=== PATIENT | male | born 2000 | race Caucasian/White ===

== ENCOUNTER 2022-01-05 15:03 | Outpatient (REF) | payer OTHER, SELFPAY ==
[2022-01-05 15:20] LABS: MANUAL DIFF FLAG NO
[2022-01-05 15:22] LABS: Basophils Percent Auto 0.8 % (0-2); Eosinophils Absolute Auto 0.3 X10*3/uL (0.0-0.4); Eosinophils Percent Auto 7.2 % (0-4); Hematocrit 43.9 % (42.0-52.0); Hemoglobin 15.3 g/dl (14.0-18.0); Imm Gran Abs Auto 0.01 X10*3/uL (0.00-0.03); Imm Gran Pct Auto 0.3 % (0.0-0.4); Lymphocytes Absolute Auto 1.3 X10*3/uL (1.2-4.9); Lymphocytes Percent Auto 33.8 % (20-40); Mean Corpuscular HGB Conc 34.9 g/dl (31.0-36.0); Mean Corpuscular Hemoglobin 31.1 pg (27.0-33.0); Mean Corpuscular Volume 89.2 fL (80.0-98.0); Mean Platelet Volume 10.1 fL (9.4-12.4); Monocytes Absolute Auto 0.2 X10*3/uL (0.1-1.2); Monocytes Percent Auto 5.6 % (2-11); Neutrophils Percent Auto 52.3 % (45-73); Platelet Count 167 X10*3/uL (160-400); Red Blood Count 4.92 X10*6/uL (4.60-5.80); Red Cell Distribution Width 11.9 % (11.0-16.0); White Blood Count 3.7 X10*3/uL (4.8-10.8)
[2022-01-05 15:45] LABS: Anion Gap 10 (12-20); Blood Urea Nitrogen 6 mg/dL (9-16); Calcium 9.5 mg/dL (8.4-10.2); Carbon Dioxide 29 mmol/L (22-29); Chloride 104 mmol/L (96-108); Cholesterol 122 mg/dL; Estimated Glomerular Filt Rate > 60; Glucose Random 96 mg/dL (60-115); Potassium 4.5 mmol/L (3.3-5.1); Sodium 138 mmol/L (135-145)
[2022-01-05 15:48] LABS: Appearance Urine CLEAR; Color Urine YELLOW; Glucose Urine UA NEG (NEG); Leukocyte Esterase Urine NEG (NEG); Nitrite Urine NEG (NEG); PH 8.5 (5.0-8.0); Urine Blood NEG (NEG); Urine Ketones NEG (NEG); Urine Protein NEG (NEG-TRACE)
[2022-01-05 16:39] LABS: Amphetamine Screen Urine Not Detected (Not Detect); Barbiturates, Urine Not Detected (Not Detect); Benzodiazepines Screen Urine Not Detected (Not Detect); Cannabinoid Screen Urine Not Detected (Not Detect); Cocaine Screen Urine Not Detected (Not Detect); Fentanyl, urine Not Detected (Not Detect); Opiate Screen Urine Not Detected (Not Detect); Phencyclidine Screen Urine Not Detected (Not Detect)
[2022-01-06 10:29] LABS: HBS Num1 24.39 mIU/mL (0-7.99); ~Hepatitis B Surface Antibody REACTIVE (Nonreactive)
== END 2022-01-05 15:04 | disposition home or self-care (01) ==
LOC: HO.LAB 15:03
PROVIDERS: PCP Internal Medicine; Visit Provider Internal Medicine
DX: Z00.00 Encounter for general adult medical examination without abnormal findings (principal)
CPT/HCPCS: 80048; 80307; 81003; 82465; 85025; 86706

== ENCOUNTER 2025-04-13 10:21 | Outpatient (AMB) | payer BC, SELFPAY ==
--- NOTE | 2025-04-13 10:19 | MHC.PC.OV ---
Vital Signs 04/13/25 10:22 04/13/25 10:24 Height 5 ft 10 in Weight 144 lb BMI 20.7 BP 110/64 Blood Pressure Location Lt brachial Position Sitting Respiration 17 Pulse 91 Pulse Source Pulse Oximeter Temp 99.1 F Temp Source Temporal Artery Scan Pulse Oximetry (%) 99 Oxygen Delivery Method Room Air Intake Visit Reasons: Annual Japanese Interpreter Required: No Accompanied by: Self / Same As Patient Allergies No Known Allergies Allergy (Verified 04/13/25 10:19) Tobacco use date assessed: 04/13/25 [facility] Social History Patient Tobacco Use Status: Never used Tobacco e-Cigarette/Vaping Use: Never Used Questionnaire PHQ-9 Over the last 2 weeks, how often have you been bothered by any of the following problems? 1. Little interest or pleasure in doing things: not at all 2. Feeling down, depressed, or hopeless: not at all 3. Trouble falling or staying asleep, or sleeping too much: not at all 4. Feeling tired or having little energy: not at all 5. Poor appetite or overeating: not at all 6. Feeling bad about yourself - or that you are a failure or have let yourself or your family down: not at all 7. Trouble concentrating on things, such as reading the newspaper or watching television: not at all 8. Moving or speaking so slowly that other people could have noticed. Or the opposite - being so fidgety or restless that you have been moving around a lot more than usual: not at all 9. Thoughts that you would be better off or of hurting yourself in some way: not at all Total score: 0 Source: Developed by Drs. Jeff Young, Kathleen Rizzo, Keith Ziegler and colleagues, with an educational tash from [employer]. Thrive Questionnaire Date Thrive assessed: 04/13/25 I am a: Patient What is your living situation today?: I have a steady place to live Within the past 12 months, did the food you bought not last and you didn't have the money to get more?: Never true Within the past 12 months, did you worry whether your food would run out before you got money to buy more?: Never true Do you have trouble paying for medicines?: No Do you have trouble getting transportation to medical appointments?: No Do you have trouble paying your heating and electricity bill?: No Do you have trouble taking care of your child, family member or friend?: No Do you have trouble with day-to-day activities such as bathing, preparing meals, shopping, managing finances, etc.?: No Are you currently unemployed and looking for a job?: No Are you interested in more education?: No THRIVE Score: 0 AUDIT C Alcohol Use Questionnaire (AUDIT-C) 1. How often do you have a drink containing alcohol?: Never Total Score: 0 CONNIE-7 AMB Questionnaire CONNIE-7 Date CONNIE - 7 assessed: 04/13/25 Feeling nervous, anxious, or on edge: 0 = Not at all Not being able to stop or control worryin = Not at all Worrying too much about different things: 0 = Not at all Trouble relaxin = Not at all Being so restless that it is hard to sit still: 0 = Not at all Becoming easily annoyed or irritable: 0 = Not at all Feeling afraid as if something awful might happen: 0 = Not at all Total CONNIE-7 score (0-4 normal; 5-9 mild; 10-14 moderate; 15-21 severe): 0 Source: Developed by Drs. Jeff Young, Kathleen Rizzo, Keith Ziegler and colleagues, with an educational tash from [employer]. Physical exam (Primary Care) Vital Signs: Last Vital Signs Temp 99.1 F 04/13/25 10:24 Pulse 91 04/13/25 10:24 Resp 17 04/13/25 10:24 BP 110/64 04/13/25 10:24 Pulse Ox 99 04/13/25 10:24 Oxygen Delivery Method Room Air 04/13/25 10:24 BMI result Body Mass Index 20.7 Tobacco/Smoking Status: Tobacco use Status Tobacco use date assessed 04/13/25 04/13/25 10:25 Patient Tobacco Use Status Never used Tobacco 04/13/25 10:25 e-Cigarette/Vaping Use Never Used 04/13/25 10:25 PHQ-9: PHQ-9 Score PHQ-9: Total score 0 04/13/25 10:52 Thrive Assessment: Date of Thrive Assessment Date Thrive assessed 04/13/25 04/13/25 10:52 Coding Level of Care Code New Pt Prev Care 18-39yr([id number] Diagnoses Annual physical exam Z00.00 Assessment & Plan Assessment & Plan (1) Annual physical exam: Code(s): Z00.00 - Encounter for general adult medical examination without abnormal findings Plan: History of Present Illness - The patient is a 25-year-old male presenting for a physical examination with concerns about back pain. - Back pain: The patient reports experiencing back pain, which he attributes to frequently bending and lifting heavy boxes at work. - Urinary hesitancy: The patient describes difficulty initiating urination, particularly after defecation, requiring effort to void small amounts of urine. - Cataract: The patient has a cataract in his left eye but compensates with his right eye, and he is under the care of an dental resident. - Social history: The patient lives with his father, does not smoke, and engages in walking as his primary form of exercise. Social History - The patient lives with his father and does not smoke. - He engages in walking as his primary form of exercise, both at work and with his father in their neighborhood. Review of Systems - Musculoskeletal: Reports back pain associated with lifting heavy boxes. - Genitourinary: Reports urinary hesitancy and difficulty initiating urination. - Ophthalmologic: Reports cataract in the left eye, compensating with the right eye. - Respiratory: Denies smoking but is exposed to secondhand smoke at work. Physical Exam General: Cooperative and healthy appearing Nutritional Appearance: Well nourished Orientation/consciousness: Patient oriented x3 Limitations: No limitations Head: Normal to inspection General: Appearance normal, both eyes and all related structures Neck: Normal visual inspection Chest: Normal palpation of entire chest wall Respiratory: Normal respiratory effort Neurology: Patient oriented x3 Results Plan 1. Back Pain - Plan to evaluate ergonomic factors at work and consider physical therapy if symptoms persist. 2. Urinary Hesitancy - Plan to conduct urinalysis and consider referral to urology if symptoms persist. 3. Cataract In Left Eye - Continue follow-up with ophthalmology for monitoring and management. Discussion Notes During the visit, we discussed the patient's back pain and its possible relation to his work activities. I advised him to consider ergonomic adjustments and physical therapy if the pain persists. We also addressed his urinary hesitancy, and I recommended a urinalysis with a potential referral to urology if needed. For his cataract, I emphasized the importance of continued follow-up with his dental resident. We agreed on obtaining blood work to further assess his health status. Patient Instructions - Follow ergonomic practices at work to reduce back strain. - Schedule a urinalysis and follow up with results. - Continue regular visits with your dental resident for cataract management. - Complete the recommended blood work. Orders: Orders Basic Metabolic Panel Today E78.5 - Hyperlipidemia, unspecified, Z00.00 - Encounter for general adult medical examination without abnormal findings Complete Blood Count no Diff Today E78.5 - Hyperlipidemia, unspecified, Z00.00 - Encounter for general adult medical examination without abnormal findings Thyroid Stimulating Hormone Today E78.5 - Hyperlipidemia, unspecified, Z00.00 - Encounter for general adult medical examination without abnormal findings UA and rflx microscopic Today E78.5 - Hyperlipidemia, unspecified, Z00.00 - Encounter for general adult medical examination without abnormal findings Lipid Panel Today E78.5 - Hyperlipidemia, unspecified, Z00.00 - Encounter for general adult medical examination without abnormal findings Liver Panel Today E78.5 - Hyperlipidemia, unspecified, Z00.00 - Encounter for general adult medical examination without abnormal findings
[2025-04-13 10:22] VITALS: BMI 20.7
[2025-04-13 10:24] VITALS: BP 110/64; PULSE 91; RESP 17; TEMP 37.3; O2SAT 99
--- OUTSIDE RECORDS SUMMARY | 2025-04-13 11:26 | XMS_ITS | Clinical Summary ---
Author Organization [facility] Address [address] [place] [id number] Phone Care Team Providers Care Floor Coverings Salesperson Name Role Phone Navjot De La Cruz MD Primary Care Provider [phone] Allergies No known active allergies Medications No known medications Immunizations Immunization Administration Dates Next Due DTaP 5 02/24/2003, 9,1998,06/30,1998 H1N1 Inj Preservative Free 10/01/2009 HPV, Quadrivalent 11/27/2012,07/30/2012,05/30/20 12 Hep A, ped/adol 08/27/2014,07/17/2013 Hep B, ped/adol 1998,1998,1998 Hib (PRP-T) 05/30/1999, 8,1998,05/03 IPV 02/24/2003, 9,1998,05/03 Influenza, injectable, quadr ivalent, preservative free 06/22/2018,06/26/2015,08/27/2014 Influenza, injectable, trivalent 012,05/16/2011,06/18/2010,07/02,10/05/2008,08/14/2007 Influenza, injectable, triva lent, preservative free 07/17/2013 MMR 02/24/2003,02/25/1999 Meningococcal Conj (Menactra) MCV4P 08/27/2014,0 04/07/2009 Tdap 04/14/2019,04/07/2009 Varicella 04/07/2009,02/25/1999 Family History Medical History Relation Name Comments Heart disease (Premature) Father No Known Problems Mother Relation Name Status Comments Father Mother Social History Tobacco Use Types Packs/Day Years Used Date Smoking Tobacco: Never Smokeless Tobacco: Never Comments:Never Smoker Alcohol Use Standard Drinks/Week Comments Never 0 (1 standard drink = 0.6 oz pur e alcohol) Hunger/Food Answer Date Recorded In the last 12 months, did y ou or your family ever eat less than you felt you should because there wasn't enough money for food? No 04/23/2020 Stable Housing Answer Date Recorded Are you worried that in the next 2 months you may not have stable housing? No 04/23/2020 Transportation Concerns Answer Date Rec orded In the last 12 months, have you or your family ever had to go without healthcare because you didn't have a way to get there? No 04/23/2020 Hazards in Home Answer Date Recorded Think about the place you li ve. Do you have problems with any of the following? Pests (mice or roaches), mold, no/not working smoke detectors, water leaks, no window guards. No 2019 Financing Utilities Answer Date Recorde d In the last 12 months, has t he electric, gas, oil, or water company threatened to shut off your services in your home? No 04/23/2020 Safety at Home Answer Date Recorded Are you or your family worried about feeling saf e in your home? No 04/23/2020 Outside Support Answer Date Recorded Do you feel that you need mo re support from other people or programs to help you care for yourself or your family? No 04/23/2020 Understanding Health Concerns Answer Da te Recorded Do you need help understandi ng your or your child's healthcare needs (diagnosis, medications, plan, etc.)? No 04/23/2020 Financing Health Concerns Answer Date R ecorded In the last 12 months, was t here a time when your child needed to see a doctor or get medications or supplies but could not because of cost? No 04/23/2020 Missing School or Work Answer Date Aime rded Did you or your child miss s chool or work because of a health problem that could have been avoided? No 04/23/2020 Sex and Gender Information Value Date Recorded Sex Assigned at Not on file Legal Sex Male 6:35 PM EDT Gender Identity Not on file Sexual Orientation Not on file Last Filed Vital Signs Vital Sign Reading Time Taken Comments Blood Pressure 98/60 04/23/2020 12:16 PM EDT Pulse 75 04/23/2020 12:16 PM EDT Temperature 36.4 C (97.6 F) 04/23/2020 12:16 PM EDT Respiratory Rate - - Oxygen Saturation - - Inhaled Oxygen Concentration - - Weight 62.4 kg (137 lb 9.6 oz) 04/23/2020 12:16 PM EDT Height 179.1 cm (5' 10.5 ) 04/23/2020 12:16 PM E DT Body Mass Index 19.46 04/23/2020 12:16 PM EDT Plan of Treatment Health Maintenance Due Date Last Done Comments COVID-19 Vaccine ( season) 2024 08/06/2021, 02/02/2021, 01/05/2021 Influenza Vaccines (#1) 2025 06/26/20, 07/05/2020, 07/06/2019, Additional history exists DTaP,Tdap,and Td Vaccines (8 - Td or Tdap) 04/14/2029 04/14/2019, 04/07/2009, 02/24/2003, Additional history exists Hepatitis B Vaccines Completed 1998, 1998, 1998 HIB Vaccines Completed 05/30/1999, 08/17, 1998, Additional history exists IPV Vaccines Completed 02/24/2003, 08/17, 1998, Additional history exists MMR Vaccines Completed 02/24/2003, 02/25/1999 Varicella Vaccines Completed 04/07/2009, 02/25/1999 HPV Vaccines Completed 11/27/2012, 07/18, 05/30/2012 Hepatitis A Vaccines Completed 08/27/2014, 07/17/20 13 Meningococcal Vaccine Completed 08/27/2014, 009 Men B Vaccine Aged Out No longer elig ible based on patient's age to complete this topic Pneumococcal Vaccine Aged Out No long er eligible based on patient's age to complete [place] [id number] [facility] [employer] [id number] Care Teams Floor Coverings Salesperson Relationship Specialty Start Date End Date Navjot De La Cruz MD [facility] [facility] [address] PCP - General 01/23/18
== END 2025-04-13 10:49 | disposition home or self-care (01) ==
LOC: HO.HMCHD 10:21
PROVIDERS: PCP Internal Medicine; Visit Provider Internal Medicine
DX: Z00.00 Encounter for general adult medical examination without abnormal findings (principal)

== ENCOUNTER 2025-04-18 08:03 | Outpatient (REF) | payer BC, SELFPAY ==
[2025-04-18 09:25] LABS: Hematocrit 43.3 % (42.0-52.0); Hemoglobin 15.1 g/dl (14.0-18.0); Mean Corpuscular HGB Conc 34.9 g/dl (31.0-36.0); Mean Corpuscular Hemoglobin 32.0 pg (27.0-33.0); Mean Corpuscular Volume 91.7 fL (80.0-98.0); NRBC Abs Auto 0.000 X10*3/uL (0.0-0.012); NRBC Pct Auto 0.0 /100WBC (0.0-0.2); Platelet Count 186 X10*3/uL (160-400); Red Blood Count 4.72 X10*6/uL (4.60-5.80); White Blood Count 3.9 X10*3/uL (4.8-10.8)
[2025-04-18 10:02] LABS: Appearance Urine Cloudy; Glucose Urine UA Negative (Negative); PH 6.0 (5.0-9.0); Specific Gravity - Urine 1.020 (1.005-1.025); UMIC TRIGGER UA YES
[2025-04-18 10:24] LABS: Alanine Aminotransferase 18 U/L (0-40); Albumin Level 4.9 g/dL (3.5-5.0); Alkaline Phosphatase 67 U/L (39-117); Anion Gap 12 (12-20); Aspartate Amino Transferase 28 U/L (5-37); Blood Urea Nitrogen 6 mg/dL (9-16); Calcium 9.7 mg/dL (8.4-10.2); Carbon Dioxide 28 mmol/L (22-29); Chloride 106 mmol/L (96-108); Cholesterol 121 mg/dL (<200); Estimated Glomerular Filt Rate > 60; HDL Cholesterol 47 mg/dL (>40); Potassium 4.4 mmol/L (3.3-5.1); Sodium 142 mmol/L (135-145); Total Protein 7.5 g/dL (6.5-8.0); Triglycerides 42 mg/dL (<150)
[2025-04-18 10:27] LABS: Thyroid Stimulating Hormone 1.04 uIU/mL (0.32-4.0)
== END 2025-04-18 08:04 | disposition home or self-care (01) ==
LOC: HO.LAB 08:03
PROVIDERS: PCP Internal Medicine; Visit Provider Internal Medicine
DX: Z00.00 Encounter for general adult medical examination without abnormal findings (principal); E78.5 Hyperlipidemia, unspecified
CPT/HCPCS: 36415; 80048; 80061; 80076; 81001; 81003; 84443; 85027

== ENCOUNTER 2025-08-04 20:54 | Emergency (ER) | payer BC, SELFPAY ==
--- NOTE | ~2025-08-04 | XR_ITS ---
CLINICAL HISTORY: pain swelling post fall 3 view right ankle Comparison: None provided Findings: Mildly displaced fracture of the distal fibular tip. Moderate lateral malleolus soft tissue swelling. IMPRESSION: 1. Acute fracture of the distal fibular tip. This document has been electronically signed by: Hodan Burleson MD on 08/04/2025 21:29:18
--- NOTE | ~2025-08-04 | XR_ITS ---
CLINICAL HISTORY: pain post fall 3 view right foot Comparison: None provided Findings: No fractures or dislocations. No significant arthritic change or erosions. No ankle effusion. No radiopaque foreign body. IMPRESSION: 1. No acute findings. See separate ankle radiograph. This document has been electronically signed by: Hodan Burleson MD on 08/04/2025 21:32:29
[2025-08-04 20:57] VITALS: BP 129/67; PULSE 92; RESP 16; TEMP 37.2; O2SAT 100; BMI 21.5
[2025-08-05 00:22] VITALS: BP 113/75; PULSE 70; RESP 20; TEMP 36.6; O2SAT 96
--- NOTE | 2025-08-05 01:07 | ED.LOWEXIN ---
HPI - Extremity Injury (Lower) General Chief Complaint: Extremity Injury, Lower Stated Complaint: Swelling Of Limb/rt ankle Source: patient Mode of arrival: ambulatory Limitations: no limitations History of Present Illness ED Provider: Dr. Mini Esquivel HPI Narrative: Patient comes to the emergency room complaining of right ankle pain. Patient states that he was at work and tripped over a box. Patient denies hitting his head or losing consciousness. Patient denies being on blood thinners. Related Data Home Medications ?Medication ?Instructions ?Recorded ?Confirmed multivitamin 1 tab PO DAILY 04/13/25 Allergies Allergy/AdvReac Type Severity Reaction Status Date / Time No Known Allergies Allergy Verified 08/04/25 20:59 Review of Systems Review of Systems: Constitutional : No Weight loss, No Fever, No Chills, No Night Sweats, No Fatigue, No Malaise ENT/Mouth : No Hearing loss, No Ear Pain, No Nasal Congestion, No Sinus Pain, No Hoarseness, No sore throat, No Rhinorrhea, No Swallowing Difficulty Eyes: No Eye Pain, No Swelling, No Redness, No Foreign Body, No Discharge, No Vision Changes Cardiovascular : No Chest Pain, No SOB, No Dyspnea on Exertion, No Orthopnea, No Edema, No Palpitations Respiratory : No Cough, No Sputum, No Wheezing, No Smoke Exposure, No Dyspnea Gastrointestinal : No Nausea, No Vomiting, No Diarrhea, No Constipation, No abdominal Pain, No Hematochezia, No Melena Genitourinary : no irregular bleeding, No Dysuria, No Urinary Frequency, No Hematuria, No Urinary Incontinence, No Urgency, No Flank Pain, No Urinary Flow Changes, No Hesitancy Musculoskeletal : Complaining of right ankle pain No Myalgias, No Joint Swelling Skin : No Skin Lesions, No rash Neuro : No Weakness, No Numbness, No Paresthesias, No Loss of Consciousness, No Dizziness, No Headache Psych : No Anxiety/Panic, No Depression, No SI/HI/AH/VH, No Social Issues, Heme/Lymph: No Bruising, No Bleeding,No Lymphadenopathy Endocrine : No Polyuria, No Polydipsia, No Temperature Intolerance [facility] Social History Social History Patient Tobacco Use Status: Never used Tobacco e-Cigarette/Vaping Use: Never Used Physical Exam Exam: Exam: Appearance: Alert. Oriented X3. No acute distress. Eyes: Pupils equal, round and reactive to light. ENT: Pharynx normal. Neck: Normal inspection. Neck supple. No lymph nodes noted. No crepitus CVS: Normal heart rate and rhythm. Pulses normal. Normal S1 and S2 Respiratory: No respiratory distress. Breath sounds normal. No Wheezing. No rales Abdomen: Soft and nontender. No rigidity. No distention. Skin: Skin warm and dry. Normal skin color. Normal skin turgor. Extremities: Patient's right ankle there is swelling over the lateral malleolus, pain to palpation over than malleolus. No pain to palpation in the foot. No pain to palpation over the medial malleolus Neuro: Oriented X 3. No motor deficit. No sensory deficit. Moving all extremities. No slurred speech. CN 2 through 12 grossly intact Psych: calm, cooperative, normal affect Vital Signs: Vital Signs: Last Vital Signs Temp 97.9 F 08/05/25 00:22 Pulse 70 08/05/25 00:22 Resp 20 08/05/25 00:22 BP 113/75 08/05/25 00:22 Pulse Ox 96 08/05/25 00:22 O2 Del Method Room Air 08/05/25 00:22 BMI result Body Mass Index 21.5 Medical Decision Making Medical Decision Making MDM Narrative: Patient declined pain medication. X-ray of the ankle shows an acute fracture of the distal fibular tip Patient's foot was put in a splint, given crutches. Patient instructed to follow-up with work connections and Orthopedics. Differential Diagnosis Differential Diagnoses: The differential diagnosis associated with the presentation includes (Ankle fracture, sprain, dislocation, contusion) Independent Interpretation I performed an independent interpretation of an: Plain X-Ray Radiology Impression Discussion of test interpretation with radiology: I have reviewed the radiologist's reading. Radiologist Impression: Mildly displaced fracture of the distal fibular tip. Moderate lateral malleolus soft tissue swelling. IMPRESSION: 1. Acute fracture of the distal fibular tip. Discharge Plan Discharge Clinical Impression: Fracture of lateral malleolus Patient Disposition: Home, Self-Care Instructions: Crutch Instructions (ED), Ankle Fracture (ED) Additional Instructions: Please follow-up with your primary care physician tomorrow. If you have any worsening or new symptoms, please return to the emergency room or call 911 Prescriptions: No Action multivitamin Tablet 1 tab PO DAILY Referrals: Mimi Rivera PA-C [Physician Social Services Manager, Orthopedics] Jhon Segundo MD [Physician, Occupational Medicine] Stand Alone Forms: Work/School Release Print Language: Portuguese
[2025-08-05 01:30] VITALS: BP 113/75; PULSE 70; RESP 20; TEMP 36.6; O2SAT 96
--- OUTSIDE RECORDS SUMMARY | 2025-08-05 14:31 | XMS_ITS | Clinical Summary ---
Author Organization [facility] Address [address] [place] [phone] Phone Care Team Providers Care Trolley Worker Name Role Phone Navjot De La Cruz MD Primary Care Provider [phone] Allergies No known active allergies Medications No [...] Health Maintenance Due Date Last Done Comments Influenza Vaccines (#1) 2025 06/26/20, 07/05/2020, 07/06/2019, Additional history exists COVID-19 Vaccine ( season) 2025 08/06/2021, 02/02/2021, 01/05/2021 DTaP,Tdap,and Td Vaccines (8 - Td or [...] complete [place] [id number] [facility] [employer] [id number] Care Teams Trolley Worker Relationship Specialty Start Date End Date Navjot De La Cruz MD [facility] [facility] [place] [address] PCP - General 01/23/18
--- OUTSIDE RECORDS SUMMARY | 2025-08-05 14:32 | XMS_ITS | Encounter Summary ---
Author Organization [facility] Address [address] [place] [phone] Phone Care Team Providers Care University Administrator Name Role Phone Navjot De La Cruz MD Primary Care Provider [phone] Encounter Details Date Type Department Care Team (Late st Contact Info) Description 05/16/2011 Conversion Encounter [facility] [address] [place] [address] [place] [phone] Social History Tobacco Use Types Packs/Day Years Used Date Smoking Tobacco: Never Assessed Sex and Gender Information Value Date Recorded Sex Assigned at Not on file Legal Sex Male 6:35 PM EDT Gender Identity Not on file Sexual Orientation Not on file documented as of this encounter Plan of Treatment Not on file documented as of this encounter Visit Diagnoses Not on filedocumented in this encounter Care Teams University Administrator Relationship Specialty Start Date End Date Navjot De La Cruz MD [address] [place] [address] [place] [id number] PCP - General 01/23/18 documented as of this encounter
== END 2025-08-05 01:30 | disposition home or self-care (01) ==
PROVIDERS: Emergency Provider Emergency Medicine
DX: S82.61XA Displaced fracture of lateral malleolus of right fibula, initial encounter for closed fracture (principal); W18.09XA Striking against other object with subsequent fall, initial encounter; Y93.01 Activity, walking, marching and hiking; Y92.9 Unspecified place or not applicable; Y99.0 Civilian activity done for income or pay; M25.571 Pain in right ankle and joints of right foot; R60.0 Localized edema
CPT/HCPCS: 73610; 73630; 99283

== ENCOUNTER → 2025-08-04 21:05 | Outpatient (BNV) | payer OTHER, SELFPAY | PROVIDERS: Visit Provider Student in an Organized Health Care Education/Training Program | DX: S82.831A Other fracture of upper and lower end of right fibula, initial encounter for closed fracture (principal); M79.671 Pain in right foot; Z04.3 Encounter for examination and observation following other accident | CPT/HCPCS: 73610; 73630 ==

== ENCOUNTER 2025-08-06 11:17 | Outpatient (AMB) | payer BC, SELFPAY ==
[2025-08-06 11:45] VITALS: BMI 21.5
--- NOTE | 2025-08-06 11:45 | A.OFFVIS_ITS ---
Vital Signs 08/06/25 11:45 Height 5 ft 10 in Weight 150 lb BMI 21.5 Intake Visit Reasons: Avulsion fracture of right ankle Intake Note: Milton is a 25 year old male who presents today as a new patient for an evaluation of his avulsion fracture of his right ankle. Patient reports fracture occurred after falling at work and then he was [place] [facility] [facility] [place] where a splint was applied and he was provided with crutches. Patient reports he is still experiencing slice pain with movement Allergies No Known Allergies Allergy (Verified 08/06/25 13:01) HPI Comments Details: The patient is a 25-year-old male with a past medical history as seen below presenting with a right ankle injury. Patient states he experienced pain and swelling to the right ankle when he stepped down awkwardly and tripped on a pothole, resulting in a fall that led to the current symptoms. Initially, the patient did not notice the severity of the swelling due to wearing shoes and socks, but upon returning home, observed significant swelling and bruising. The patient reports that the swelling has decreased somewhat since the initial injury, and the bruising is beginning to resolve. Pain is primarily located at the back of the ankle, with minimal pain on the medial and lateral aspects of the ankle. The patient denies any numbness or tingling to the right lower extremity. Patient was seen in the emergency room in which x-rays were performed and he was placed in a posterior splint. He denies any other pedal concerns. Patient was accompanied by his father. [facility] Medical History (Updated 08/09/25 @ 16:00 by Andra Clemens DPM) Right ankle pain Right ankle sprain Right ankle injury Avulsion fracture of lateral malleolus of right fibula Social History Patient Tobacco Use Status: Never used Tobacco e-Cigarette/Vaping Use: Never Used Review of Systems Const Details: - Musculoskeletal: Reports right ankle pain following an injury. - Neurological: Denies numbness or tingling. All systems reviewed & are unremarkable except as noted in HPI and below Physical Exam Vital Signs: BMI result Body Mass Index 21.5 Extrem Other: Right lower extremity focused physical exam: Derm: No open lesions abrasions or wounds noted. Resolving minimal ecchymosis noted. No hyperkeratotic areas or macerated areas noted. No clinical signs of infection noted. Vascular: DP/PT pulses palpable. Capillary refill time less than 3 seconds. Temperature gradient warm to warm. Pedal hair present. Mild nonpitting edema noted. Neuro: Protective Sensation is grossly intact. MSK: Pain on palpation to the ankle along the medial aspect, lateral aspect and posterior aspect. Range of motion of the ankle decreased due to guarding from plain. Range of motion of the forefoot within normal limits. Pain on palpation to the lateral ankle ligaments. No crepitus or fluctuance noted. MMT 4/5. Antalgic gait noted, patient is nonweightbearing to the right lower extremity with the use of crutches. Office Procedures AMB Podiatry Dressing Details of Procedure: Applied a posterior splint to the right lower extremity. 21875 - Short leg splint Procedure code (CPT) selection complete Results Reviewed Results Reviewed: Ordered right ankle x-rays three-view weight-bearing to be performed prior to next visit. Podiatry read of right ankle x-ray (08/04/2025): Avulsion fracture noted to the distal tip of the fibula. No other fractures or dislocations noted. Joint spacing within normal limits. Soft tissue swelling noted. Right ankle x-ray (08/04/2025): Findings: Mildly displaced fracture of the distal fibular tip. Moderate lateral malleolus soft tissue swelling. IMPRESSION: 1. Acute fracture of the distal fibular tip. Podiatry read of right foot x-ray (08/04/2025): Joint space narrowing noted to IPJs 1-5. Os peroneum noted. No acute fractures or dislocations noted. Right foot x-ray (08/04/2025): Findings: No fractures or dislocations. No significant arthritic change or erosions. No ankle effusion. No radiopaque foreign body. IMPRESSION: 1. No acute findings. See separate ankle radiograph. Assessment & Plan Assessment & Plan (1) Avulsion fracture of lateral malleolus of right fibula: Code(s): S82.61XA - Displaced fracture of lateral malleolus of right fibula, initial encounter for closed fracture Category: Medical Qualifiers: Encounter type: initial encounter Fracture type: closed Qualified Code(s): S82.61XA - Displaced fracture of lateral malleolus of right fibula, initial encounter for closed fracture (2) Right ankle sprain: Code(s): S93.401A - Sprain of unspecified ligament of right ankle, initial encounter Category: Medical Qualifiers: Encounter type: initial encounter Involved ligament of ankle: unspecified ligament Qualified Code(s): S93.401A - Sprain of unspecified ligament of right ankle, initial encounter (3) Right ankle injury: Code(s): S99.911A - Unspecified injury of right ankle, initial encounter Category: Medical Qualifiers: Encounter type: initial encounter Qualified Code(s): S99.911A - Unspecified injury of right ankle, initial encounter (4) Right ankle pain: Code(s): M25.571 - Pain in right ankle and joints of right foot Category: Medical Qualifiers: Chronicity: acute Qualified Code(s): M25.571 - Pain in right ankle and joints of right foot Plan Patient was informed and verbally consented to the use of an ambient scribe for clinic note documentation during this visit. I discussed with the patient and his father that the x-rays revealed an avulsion fracture distal tip of the fibula which is a favorable type of fracture for conservative treatment. I explained the importance of non-weightbearing status and the use of a posterior splint to aid in healing. We talked about the potential need for physical therapy. We discussed need for surgical inte rvention if conservative treatment fails. I advised the patient to return in two weeks for a follow-up and repeat x-rays to monitor the healing process. - Ordered right ankle x-rays to be performed prior to next visit. - Applied a posterior splint to the right lower extremity. - Patient is to be nonweightbearing to the right lower extremity with the use of an assistive device. - Patient is to keep the posterior splint clean dry and intact. - Continue rice protocol. - Patient may take ibuprofen or Tylenol PRN for pain. RTC in 2 weeks. Orders: Orders AMB Podiatry Dressing 08/06/25 M25.571 - Pain in right ankle and joints of right foot, S82.61XA - Displaced fracture of lateral malleolus of right fibula, initial encounter for closed fracture, S93.401A - Sprain of unspecified ligament of right ankle, initial encounter, S99.911A - Unspecified injury of right ankle, initial encounter XR ankle RT min 3V 08/06/25 M25.571 - Pain in right ankle and joints of right foot, S82.61XA - Displaced fracture of lateral malleolus of right fibula, initial encounter for closed fracture, S93.401A - Sprain of unspecified ligament of right ankle, initial encounter, S99.911A - Unspecified injury of right ankle, initial encounter Coding Level of Care Code New Pt Level 4 (77267) Diagnoses Closed avulsion fracture of lateral malleolus of right fibula, initial encounter S82.61XA Encounter type: initial encounter Fracture type: closed Sprain of right ankle, unspecified ligament, initial encounter S93.401A Encounter type: initial encounter Involved ligament of ankle: unspecified ligament Injury of right ankle, initial encounter S99.911A Encounter type: initial encounter Acute right ankle pain M25.571 Chronicity: acute CPT Codes Podiatry Dressing - CPT: 19519 - Short leg splint ([id number]) Time Spent (min) 50
--- OUTSIDE RECORDS SUMMARY | 2025-08-06 17:31 | XMS_ITS | Encounter Summary ---
Author Organization [facility] Address [address] [place] [address] Phone Care Team Providers Care Environmental Studies Professor Name Role Phone Navjot De La Cruz MD Primary Care Provider [phone] Encounter Details Date Type Department Care Team (Late st Contact Info) Description 05/16/2011 Conversion Encounter [facility] [address] [place] [address] [place] [address] Social History Tobacco Use Types Packs/Day Years [...] on filedocumented in this encounter Care Teams Environmental Studies Professor Relationship Specialty Start Date End Date Navjot De La Cruz MD [address] [place] [address] [place] [address] PCP - General 01/23/18 documented as of this encounter
--- OUTSIDE RECORDS SUMMARY | 2025-08-06 17:31 | XMS_ITS | Clinical Summary ---
Author Organization [facility] Address [address] [place] [address] Phone Care Team Providers Care Jewelry Designer Name Role Phone Navjot De La Cruz MD Primary Care Provider Allergies No known active allergies Medications No [...] complete [place] [id number] [facility] [employer] [place] [id number] Care Teams Jewelry Designer Relationship Specialty Start Date End Date Navjot De La Cruz MD [facility] [place] [address] PCP - General 01/23/18
== END 2025-08-06 12:06 | disposition home or self-care (01) ==
LOC: HO.HPODS 11:18
PROVIDERS: Visit Provider Student in an Organized Health Care Education/Training Program
DX: S82.61XA Displaced fracture of lateral malleolus of right fibula, initial encounter for closed fracture (principal); S93.401A Sprain of unspecified ligament of right ankle, initial encounter; S99.911A Unspecified injury of right ankle, initial encounter; M25.571 Pain in right ankle and joints of right foot
CPT/HCPCS: 29515; 99204

== ENCOUNTER → 2025-08-06 11:17 | Outpatient (BNVA) | payer BC, SELFPAY | PROVIDERS: Visit Provider Student in an Organized Health Care Education/Training Program | DX: S82.61XA Displaced fracture of lateral malleolus of right fibula, initial encounter for closed fracture (principal); S93.401A Sprain of unspecified ligament of right ankle, initial encounter; W01.0XXA Fall on same level from slipping, tripping and stumbling without subsequent striking against object, initial encounter; Y92.9 Unspecified place or not applicable; Y99.0 Civilian activity done for income or pay | CPT/HCPCS: 29515 ==

== ENCOUNTER 2025-08-15 09:26 | Outpatient (REF) | payer BC, SELFPAY ==
--- NOTE | ~2025-08-15 | XR_ITS ---
EXAMINATION: XR ANKLE, RIGHT CLINICAL INFORMATION: S82.61XA - Displaced fracture of lateral malleolus of right fibula, init... COMPARISON: X-ray 08/04/2025 TECHNIQUE: AP, lateral, and mortise views of the right ankle. FINDINGS: Stable positioning/alignment of the mildly displaced fracture of the distal fibula . Decreased conspicuity of the fracture plane. No new fractures seen. Slight asymmetric ankle mortise, probably positioning/technique. Lateral ankle soft tissue swelling. XR/XR ankle RT min 3V IMPRESSION: Healing changes in the distal fibular tip fracture. Electronically signed by: Omi Gordon MD 08/17/2025 07:47 AM EST
--- OUTSIDE RECORDS SUMMARY | 2025-08-15 09:29 | XMS_ITS | Encounter Summary ---
Author Organization [facility] Address [address] [place] [address] Phone Care Team Providers Care Cofounder Name Role Phone Navjot De La Cruz MD Primary Care Provider [phone] Encounter Details Date Type Department Care Team (Late st Contact Info) Description 05/16/2011 Conversion Encounter [facility] [address] [place] [address] [place] [address] Social History Tobacco Use Types Packs/Day Years [...] on filedocumented in this encounter Care Teams Cofounder Relationship Specialty Start Date End Date Navjot De La Cruz MD [address] [place] [address] [place] [address] PCP - General 01/23/18 documented as of this encounter
--- OUTSIDE RECORDS SUMMARY | 2025-08-15 09:29 | XMS_ITS | Clinical Summary ---
Author Organization [facility] Address [address] [place] [address] Phone Care Team Providers Care Mail Carrier And Clerk Name Role Phone Navjot De La Cruz MD Primary Care Provider [phone] Allergies No known active allergies Medications No [...] complete [place] [id number] [facility] COMM[employer]CIAL [place] [id number] Care Teams Mail Carrier And Clerk Relationship Specialty Start Date End Date aNvjot De La Cruz MD [facility] [place] [address] PCP - General 01/23/18
== END 2025-08-15 09:27 | disposition home or self-care (01) ==
LOC: HO.XRAY 09:26
PROVIDERS: Visit Provider Student in an Organized Health Care Education/Training Program
DX: S82.61XA Displaced fracture of lateral malleolus of right fibula, initial encounter for closed fracture (principal)
CPT/HCPCS: 73610

== ENCOUNTER → 2025-08-15 09:34 | Outpatient (BNV) | payer BC, SELFPAY | PROVIDERS: Visit Provider Radiology Diagnostic Ultrasound | DX: S82.61XD Displaced fracture of lateral malleolus of right fibula, subsequent encounter for closed fracture with routine healing (principal) | CPT/HCPCS: 73610 ==

== ENCOUNTER 2025-08-20 09:26 | Outpatient (AMB) | payer BC, SELFPAY ==
[2025-08-20 09:52] VITALS: BMI 21.5
--- NOTE | 2025-08-20 09:52 | MHC.OFFVIS ---
Vital Signs 08/20/25 09:52 Height 5 ft 10 in Weight 150 lb BMI 21.5 Intake Visit Reasons: f/u xrays; right ankle avulsion fx Intake Note: Milton is a 25 year old male who presents today for a follow up on his right ankle avulsion fracture. At his last visit a posterior splint splint to the right lower extremity was applied and X rays were orders. He was advised to continue following the RICE protocol, take ibuprofen or Tylenol prn for pain, and to be nonweightbearing to the right lower extremity with the use of an assistive device. Patient reports everything is going well and he currently is not experiencing any pain at this time. Allergies No Known Allergies Allergy (Verified 08/20/25 09:53) HPI Comments Details: The patient is a 25 year old male presenting for a follow-up visit for a right ankle avulsion fracture. He reports the ankle has been feeling better since his last visit. He has been NWB to the E and the posterior splint was seen clean, dry, and intact. Patient denies any pain and states he has not needed to take any pain medication. Patient was accompanied by his father. [facility] Medical History (Updated 08/09/25 @ 16:00 by Andra Clemens DPM) Right ankle pain Right ankle sprain Right ankle injury Avulsion fracture of lateral malleolus of right fibula Social History Patient Tobacco Use Status: Never used Tobacco e-Cigarette/Vaping Use: Never Used Review of Systems Const Details: - Musculoskeletal: Reports improvement of right ankle symptoms. All systems reviewed & are unremarkable except as noted in HPI and below Physical Exam Vital Signs: BMI result Body Mass Index 21.5 Extrem Other: Right lower extremity focused physical exam: Derm: No open lesions abrasions or wounds noted. No ecchymosis noted. No hyperkeratotic areas or macerated areas noted. No clinical signs of infection noted. Vascular: DP/PT pulses palpable. Capillary refill time less than 3 seconds. Temperature gradient warm to warm. Pedal hair present. Mild nonpitting edema noted. Neuro: Protective Sensation is grossly intact. MSK: Mild Pain on palpation to the ankle along the medial aspect, lateral aspect and posterior aspect. Range of motion of the ankle increased from last visit. Range of motion of the forefoot within normal limits. Mild Pain on palpation to the lateral ankle ligaments. No crepitus or fluctuance noted. MMT 4/5. Antalgic gait noted, patient is nonweightbearing to the right lower extremity with the use of crutches. Office Procedures AMB Podiatry Dressing Details of Procedure: Applied a stockinette, cast padding, and Andrea bandage to the right lower extremity with the use of the cam boot. 03953 - Short leg splint Procedure code (CPT) selection complete Results Reviewed Results Reviewed: Ordered right ankle weightbearing three-view x-rays to be performed prior to next visit. Podiatry read of right ankle x-ray (08/15/2025): Healing avulsion fracture noted to the distal tip of the fibula, with increased bone callus formation and consolidation. Joint spacing within normal limits. No other acute fractures or dislocations noted. Right ankle x-ray (08/15/2025): FINDINGS: Stable positioning/alignment of the mildly displaced fracture of the distal fibula . Decreased conspicuity of the fracture plane. No new fractures seen. Slight asymmetric ankle mortise, probably positioning/technique. Lateral ankle soft tissue swelling. IMPRESSION: Healing changes in the distal fibular tip fracture. Podiatry read of right ankle x-ray (08/04/2025): Avulsion fracture noted to the distal tip of the fibula. No other fractures or dislocations noted. Joint spacing within normal limits. Soft tissue swelling noted. Right ankle x-ray (08/04/2025): Findings: Mildly displaced fracture of the distal fibular tip. Moderate lateral malleolus soft tissue swelling. IMPRESSION: 1. Acute fracture of the distal fibular tip. Podiatry read of right foot x-ray (08/04/2025): Joint space narrowing noted to IPJs 1-5. Os peroneum noted. No acute fractures or dislocations noted. Right foot x-ray (08/04/2025): Findings: No fractures or dislocations. No significant arthritic change or erosions. No ankle effusion. No radiopaque foreign body. IMPRESSION: 1. No acute findings. See separate ankle radiograph. Assessment & Plan Assessment & Plan (1) Avulsion fracture of lateral malleolus of right fibula: Code(s): S82.61XA - Displaced fracture of lateral malleolus of right fibula, initial encounter for closed fracture Category: Medical Qualifiers: Encounter type: initial encounter Fracture type: closed Qualified Code(s): S82.61XA - Displaced fracture of lateral malleolus of right fibula, initial encounter for closed fracture (2) Right ankle injury: Code(s): S99.911A - Unspecified injury of right ankle, initial encounter Category: Medical Qualifiers: Encounter type: initial encounter Qualified Code(s): S99.911A - Unspecified injury of right ankle, initial encounter (3) Right ankle sprain: Code(s): S93.401A - Sprain of unspecified ligament of right ankle, initial encounter Category: Medical Qualifiers: Encounter type: initial encounter Involved ligament of ankle: unspecified ligament Qualified Code(s): S93.401A - Sprain of unspecified ligament of right ankle, initial encounter (4) Right ankle pain: Code(s): M25.571 - Pain in right ankle and joints of right foot Category: Medical Qualifiers: Chronicity: acute Qualified Code(s): M25.571 - Pain in right ankle and joints of right foot Plan Patient was informed and verbally consented to the use of an ambient scribe for clinic note documentation during this visit. I reviewed the patient's recent x-rays with him and his father, which shows his ankle fracture is healing as expected. We discussed transitioning from the posterior splint to a CAM boot to allow for a slow return to walking with the support of crutches. I educated him on the proper use of the boot. Patient may remove his boot while sleeping but is to leave the wrap on the right lower extremity on at all times.I placed an order for repeat, weight-bearing x-rays to be done prior to his next visit in two weeks, at which point we will assess if he can transition to a regular sneaker. The patient was encouraged to call with any concerns. - Transitioned patient from the posterior splint to a cam boot. - Transition patient from nonweightbearing to weight-bearing as tolerated with the use of an assistive device. - Continue rice protocol. - Ordered right ankle weightbearing three-view x-rays to be performed prior to next visit. - Patient is to keep the wrap clean dry and intact. - Patient may take ibuprofen or Tylenol PRN for pain. RTC in 2 weeks. Orders: Orders XR ankle RT min 3V 08/20/25 M25.571 - Pain in right ankle and joints of right foot, S82.61XA - Displaced fracture of lateral malleolus of right fibula, initial encounter for closed fracture, S93.401A - Sprain of unspecified ligament of right ankle, initial encounter, S99.911A - Unspecified injury of right ankle, initial encounter AMB Podiatry Dressing 08/20/25 M25.571 - Pain in right ankle and joints of right foot, S82.61XA - Displaced fracture of lateral malleolus of right fibula, initial encounter for closed fracture, S93.401A - Sprain of unspecified ligament of right ankle, initial encounter, S99.911A - Unspecified injury of right ankle, initial encounter Coding Level of Care Code Est Pt Level 4 (33835) Diagnoses Closed avulsion fracture of lateral malleolus of right fibula, initial encounter S82.61XA Encounter type: initial encounter Fracture type: closed Injury of right ankle, initial encounter S99.911A Encounter type: initial encounter Sprain of right ankle, unspecified ligament, initial encounter S93.401A Encounter type: initial encounter Involved ligament of ankle: unspecified ligament Acute right ankle pain M25.571 Chronicity: acute CPT Codes Podiatry Dressing - CPT: 99177 - Short leg splint ([id number]) Time Spent (min) 33
--- OUTSIDE RECORDS SUMMARY | 2025-08-20 10:42 | XMS_ITS | Clinical Summary ---
Author Organization [facility] Address [address] [place] [address] Phone Care Team Providers Care Pizza Hut Assistant Name Role Phone Navjot De La Cruz MD Primary Care Provider [phone] Allergies No known active allergies Medications No [...] [place] [id number] [facility] [employer]CIAL [employer] [id number] Care Teams Pizza Hut Assistant Relationship Specialty Start Date End Date Navjot De La Cruz MD [facility] [facility] [place] [address] PCP - General 01/23/18
--- OUTSIDE RECORDS SUMMARY | 2025-08-20 10:42 | XMS_ITS | Encounter Summary ---
Author Organization [facility] Address [address] [place] [address] Phone Care Team Providers Care Director Of Property Management Name Role Phone Navjot De La Cruz MD Primary Care Provider [phone] Encounter Details Date Type Department Care Team (Late st Contact Info) Description 05/16/2011 Conversion Encounter [facility] [address] [place] [address] [place] [address] Social History Tobacco Use Types Packs/Day Years [...] on filedocumented in this encounter Care Teams Director Of Property Management Relationship Specialty Start Date End Date Navjot De La Cruz MD [address] [place] [address] [place] [address] PCP - General 01/23/18 documented as of this encounter
== END 2025-08-20 10:28 | disposition home or self-care (01) ==
LOC: HO.HPODS 09:26
PROVIDERS: Visit Provider Student in an Organized Health Care Education/Training Program
DX: S82.61XA Displaced fracture of lateral malleolus of right fibula, initial encounter for closed fracture (principal); S93.401A Sprain of unspecified ligament of right ankle, initial encounter
CPT/HCPCS: 29515; 99213

== ENCOUNTER → 2025-08-20 09:26 | Outpatient (BNVA) | payer BC, SELFPAY | PROVIDERS: Visit Provider Student in an Organized Health Care Education/Training Program | DX: S82.61XA Displaced fracture of lateral malleolus of right fibula, initial encounter for closed fracture (principal); S93.401A Sprain of unspecified ligament of right ankle, initial encounter; X58.XXXA Exposure to other specified factors, initial encounter; Y93.9 Activity, unspecified; Y92.9 Unspecified place or not applicable; Y99.9 Unspecified external cause status | CPT/HCPCS: 29515 ==

== ENCOUNTER 2025-08-29 10:01 | Outpatient (REF) | payer BC, SELFPAY ==
--- NOTE | ~2025-08-29 | XR_ITS ---
CLINICAL HISTORY: S82.61XA - Displaced fracture of lateral malleolus of right fibula, init... --- Additional Notes or Special Instructions: Weightbearing please 4 views right left ankle Comparison: 08/15/2025 Findings: Stable alignment, distal fibular tip fracture. Fracture line remains evident. No new fractures.. No joint effusion. No significant arthritic change. No radiopaque foreign body. Impression: 1. Stable alignment, distal fibular tip fracture. This document has been electronically signed by: Cuba Mckay MD on 08/31/2025 15:10:11
--- OUTSIDE RECORDS SUMMARY | 2025-08-29 10:06 | XMS_ITS | Encounter Summary ---
Author Organization [facility] Address [address] [place] [address] Phone Care Team Providers Care Master [place] Name Role Phone Navjot De La Cruz MD Primary Care Provider [phone] Encounter Details Date Type Department Care Team (Late st Contact Info) Description 05/16/2011 Conversion Encounter [facility] [address] [place] [address] [place] [address] Social History Tobacco Use Types Packs/Day Years [...] on filedocumented in this encounter Care Teams Master [place] Relationship Specialty Start Date End Date Navjot De La Cruz MD [address] [place] [address] [place] [address] PCP - General 01/23/18 documented as of this encounter
== END 2025-08-29 10:02 | disposition home or self-care (01) ==
LOC: HO.XRAY 10:01
PROVIDERS: Visit Provider Student in an Organized Health Care Education/Training Program
DX: S82.61XA Displaced fracture of lateral malleolus of right fibula, initial encounter for closed fracture (principal); X58.XXXA Exposure to other specified factors, initial encounter
CPT/HCPCS: 73610

== ENCOUNTER → 2025-08-29 10:05 | Outpatient (BNV) | payer BC, SELFPAY | PROVIDERS: Visit Provider Radiology Diagnostic Radiology | DX: S82.61XA Displaced fracture of lateral malleolus of right fibula, initial encounter for closed fracture (principal) | CPT/HCPCS: 73610 ==

== ENCOUNTER 2025-09-03 08:09 | Outpatient (AMB) | payer BC, SELFPAY ==
--- OUTSIDE RECORDS SUMMARY | 2025-09-03 08:16 | XMS_ITS | Clinical Summary ---
Author Organization [facility] Address [address] [place] [address] Phone Care Team Providers Care Heavy Equipment Operator/Paver Name Role Phone Navjot De La Cruz MD Primary Care Provider [phone] Allergies No known active allergies Medications No [...] complete [place] [id number] [facility] COMMERCIAL [employer] [id number] Care Teams Heavy Equipment Operator/Paver Relationship Specialty Start Date End Date Navjot De La Cruz MD [facility] [facility] [address] PCP - General 01/23/18
--- OUTSIDE RECORDS SUMMARY | 2025-09-03 08:16 | XMS_ITS | Encounter Summary ---
Author Organization [facility] Address [address] [place] [address] Phone Care Team Providers Care Shellfish Dredge Operator Name Role Phone Navjot De La Cruz MD Primary Care Provider [phone] Encounter Details Date Type Department Care Team (Late st Contact Info) Description 05/16/2011 Conversion Encounter [facility] [address] [place] [address] [place] [phone] Social History Tobacco Use Types Packs/Day Years [...] on filedocumented in this encounter Care Teams Shellfish Dredge Operator Relationship Specialty Start Date End Date Navjot De La Cruz MD [address] [place] [address] [place] [address] PCP - General 01/23/18 documented as of this encounter
--- NOTE | 2025-09-03 08:29 | MHC.OFFVIS ---
Vital Signs 09/03/25 08:33 Height 5 ft 10 in Weight 150 lb BMI 21.5 Intake Visit Reasons: right ankle avulsion fx Intake Note: Milton is a 25 year old male who presents to the office today for a follow up for his right ankle avulsion fx. At last visit patient was transitioned from a posterior splint to a cam boot and from non-weightbearing to weight-bearing as tolerated with the use of an assistive device. New X-rays were to be obtained. Pt states everything is going well he however he notices pain when he bears weight to much but the pain itself has improved. Allergies No Known Allergies Allergy (Verified 09/03/25 08:34) HPI Comments Details: The patient is a 25 year old male presenting for a follow-up visit for a right ankle avulsion fracture. Prior to this visit, he had been weight-bearing as tolerated in a CAM boot with the use of crutches. He states he experiences mild pain ankle with extensive activity, but states overall his symptoms have continued to improve. He denies any new pedal injuries. He denies any other pedal concerns. Patient was accompanied by his father. [facility] Medical History (Updated 08/09/25 @ 16:00 by Andra Clemens DPM) Right ankle pain Right ankle sprain Right ankle injury Avulsion fracture of lateral malleolus of right fibula Social History Patient Tobacco Use Status: Never used Tobacco e-Cigarette/Vaping Use: Never Used Review of Systems Const Details: - Musculoskeletal: Reports improvement of right ankle symptoms, but experiences mild pain with ankle range of motion. All systems reviewed & are unremarkable except as noted in HPI and below Physical Exam Vital Signs: BMI result Body Mass Index 21.5 Extrem Other: Right lower extremity focused physical exam: Derm: No open lesions abrasions or wounds noted. No ecchymosis, erythema, or discoloration noted. No hyperkeratotic areas or macerated areas noted. No clinical signs of infection noted. Vascular: DP/PT pulses palpable. Capillary refill time less than 3 seconds. Temperature gradient warm to warm. Pedal hair present. Mild nonpitting edema noted. Neuro: Protective Sensation is grossly intact. MSK: Mild pain on palpation to the lateral malleolus. No pain to the medial aspect of posterior aspect of the ankle. Range of motion of the ankle increased from last visit, with mild pain upon eversion. Range of motion of the forefoot within normal limits. Mild Pain on palpation to the lateral ankle ligaments. No crepitus or fluctuance noted. MMT 4/5. Mildly Antalgic gait noted with the use of crutches. Results Reviewed Results Reviewed: Ordered right ankle weightbearing three-view x-rays to be performed prior to next visit. Podiatry read of right ankle x-ray (08/31/2025): Continued bone consolidation noted to the distal tip of the lateral malleolus, but fracture line is still evident. No other acute fractures or dislocations noted. Joint spacing within normal limits. Right ankle x-ray (08/31/2025): Findings: Stable alignment, distal fibular tip fracture. Fracture line remains evident. No new fractures.. No joint effusion. No significant arthritic change. No radiopaque foreign body. Impression: 1. Stable alignment, distal fibular tip fracture. Podiatry read of right ankle x-ray (08/15/2025): Healing avulsion fracture noted to the distal tip of the fibula, with increased bone callus formation and consolidation. Joint spacing within normal limits. No other acute fractures or dislocations noted. Right ankle x-ray (08/15/2025): FINDINGS: Stable positioning/alignment of the mildly displaced fracture of the distal fibula . Decreased conspicuity of the fracture plane. No new fractures seen. Slight asymmetric ankle mortise, probably positioning/technique. Lateral ankle soft tissue swelling. IMPRESSION: Healing changes in the distal fibular tip fracture. Podiatry read of right ankle x-ray (08/04/2025): Avulsion fracture noted to the distal tip of the fibula. No other fractures or dislocations noted. Joint spacing within normal limits. Soft tissue swelling noted. Right ankle x-ray (08/04/2025): Findings: Mildly displaced fracture of the distal fibular tip. Moderate lateral malleolus soft tissue swelling. IMPRESSION: 1. Acute fracture of the distal fibular tip. Podiatry read of right foot x-ray (08/04/2025): Joint space narrowing noted to IPJs 1-5. Os peroneum noted. No acute fractures or dislocations noted. Right foot x-ray (08/04/2025): Findings: No fractures or dislocations. No significant arthritic change or erosions. No ankle effusion. No radiopaque foreign body. IMPRESSION: 1. No acute findings. See separate ankle radiograph. Assessment & Plan Assessment & Plan (1) Avulsion fracture of lateral malleolus of right fibula: Code(s): S82.61XA - Displaced fracture of lateral malleolus of right fibula, initial encounter for closed fracture Category: Medical Qualifiers: Encounter type: initial encounter Fracture type: closed Qualified Code(s): S82.61XA - Displaced fracture of lateral malleolus of right fibula, initial encounter for closed fracture (2) Right ankle sprain: Code(s): S93.401A - Sprain of unspecified ligament of right ankle, initial encounter Category: Medical Qualifiers: Encounter type: initial encounter Involved ligament of ankle: unspecified ligament Qualified Code(s): S93.401A - Sprain of unspecified ligament of right ankle, initial encounter (3) Right ankle injury: Code(s): S99.911A - Unspecified injury of right ankle, initial encounter Category: Medical Qualifiers: Encounter type: initial encounter Qualified Code(s): S99.911A - Unspecified injury of right ankle, initial encounter (4) Right ankle pain: Code(s): M25.571 - Pain in right ankle and joints of right foot Category: Medical Qualifiers: Chronicity: acute Qualified Code(s): M25.571 - Pain in right ankle and joints of right foot Plan Patient was informed and verbally consented to the use of an ambient scribe for clinic note documentation during this visit. I discussed with the patient and his father that his ankle avulsion fracture is continuing to heal. I advised the patient to transition to WBAT in the CAMboot without the use of an assistive device. I provided an Andrea bandage for him to use for swelling and instructed patient he no longer needs the dressing or boot on while sleeping or when showering. I recommended he continue icing the ankle and placed a referral for physical therapy to assist in his recovery and eventual transition back to a sneaker. We discussed that follow-up X-rays will be done at the next visit after he is back in a sneaker. I will provide a [id number] note accommodating his use of the boot, and we scheduled a follow-up visit in 3 weeks. - The patient will transition to weight-bearing as tolerated in the CAM boot without the use of an assistive device. - Patient may use the assistive device prn due to instability or pain. - An Andrea bandage was provided for use as needed for swelling, but no longer needs to keep the dressing on while sleeping or when showering. - Advised patient to continue with RICE protocol. - Provided patient with a PT referral. - A [id number] note was provided with accommodations for the patient to wear the CAMboot. - Follow-up X-rays will be ordered at the next appointment after the patient has transitioned to wearing a sneaker. RTC in 3 weeks. Orders: Orders PT Evaluation and Treatment 09/03/25 S82.61XA - Displaced fracture of lateral malleolus of right fibula, initial encounter for closed fracture, S93.401A - Sprain of unspecified ligament of right ankle, initial encounter, S99.911A - Unspecified injury of right ankle, initial encounter, M25.571 - Pain in right ankle and joints of right foot Coding Level of Care Code Est Pt Level 4 (50182) Diagnoses Closed avulsion fracture of lateral malleolus of right fibula, initial encounter S82.61XA Encounter type: initial encounter Fracture type: closed Sprain of right ankle, unspecified ligament, initial encounter S93.401A Encounter type: initial encounter Involved ligament of ankle: unspecified ligament Injury of right ankle, initial encounter S99.911A Encounter type: initial encounter Acute right ankle pain M25.571 Chronicity: acute Time Spent (min) 31
[2025-09-03 08:33] VITALS: BMI 21.5
== END 2025-09-03 08:45 | disposition home or self-care (01) ==
LOC: HO.HPODS 08:10
PROVIDERS: Visit Provider Student in an Organized Health Care Education/Training Program
DX: S82.61XA Displaced fracture of lateral malleolus of right fibula, initial encounter for closed fracture (principal); S93.401A Sprain of unspecified ligament of right ankle, initial encounter; S99.911A Unspecified injury of right ankle, initial encounter; M25.571 Pain in right ankle and joints of right foot
CPT/HCPCS: 99214